=== PATIENT | female | born 1975 | race Hispanic/Latino ===

== ENCOUNTER 2020-04-14 09:45 | Outpatient (CLI) | payer OTHER ==
--- NOTE | 2020-04-14 10:59 | MMO ---
Bilateral MAMMO Bilat Diag [facility]. CLINICAL HISTORY: Patient is 44 years old and is seen for diagnostic exam and palpable abnormality in the right breast. The patient has no family history of breast cancer. The patient has no personal history of cancer. VIEWS: The views performed were: bilateral craniocaudal with tomosynthesis; bilateral mediolateral oblique with tomosynthesis; bilateral mediolateral with tomosynthesis; and bilateral exaggerated craniocaudal. FILMS COMPARED: The present examination has been compared to prior imaging studies performed at [facility] on 04/14/2020, and at [facility] on 03/29/2018 and 03/12/2019. This study has been interpreted with the assistance of computer-aided detection. MAMMOGRAM FINDINGS: The breasts are heterogeneously dense, which could obscure a lesion on mammography. Finding 1: There are stable benign appearing calcifications seen in both breasts. Finding 2: There are two round masses measuring 33 millimeters with circumscribed margins seen in the right breast at 12 o'clock. 2 large cysts There are no suspicious masses, suspicious calcifications, or new areas of architectural distortion. IMPRESSION: THERE IS NO MAMMOGRAPHIC EVIDENCE OF MALIGNANCY. A ROUTINE FOLLOW-UP MAMMOGRAM IN 1 YEAR IS RECOMMENDED. THE RESULTS OF THIS EXAM WERE SENT TO THE PATIENT. ACR BI-RADS Category 2 - Benign finding MAMMOGRAPHY NOTE: 1. A negative mammogram report should not delay a biopsy if a dominant of clinically suspicious mass is present. 2. Approximately 10% to 15% of breast cancers are not detected by mammography. 3. Adenosis and dense breasts may obscure an underlying neoplasm. Reported by: NASH GARCIA MD Electonically Signed: [id number]
--- NOTE | 2020-04-14 12:48 | ULT ---
RIGHT BREAST ULTRASOUND: HISTORY: Ultrasound examination of the right breast was performed with attenuation to a palpable finding at 12 o'clock position right breast. FINDINGS: There are 2 large right breast cysts immediately adjacent to one another. The smaller one measures 2 .4 x 2.4 cm in size. The larger one measures approximately 2.4 x 2.8 cm in size. These 2 cysts acco unt for the palpable finding as well as a mammographic finding. IMPRESSION: Two large benign right breast cysts immediately adjacent to one another at 12 o'clock. BIRADS category 2, benign findings. Continued annual followup screening mammograms.
== END 2020-04-14 09:46 | disposition home or self-care (01) ==
LOC: BICMAMMO 09:45
PROVIDERS: ATTEND Family Medicine
DX: N63.10 Unspecified lump in the right breast, unspecified quadrant (principal); N60.01 Solitary cyst of right breast
CPT/HCPCS: 77066; G0279

== ENCOUNTER 2021-12-06 13:47 | Outpatient (CLI) | payer OTHER | END 2021-12-06 13:48 | disposition home or self-care (01) | LOC: BICMAMMO 13:47 | PROVIDERS: ATTEND Family Medicine | DX: N63.11 Unspecified lump in the right breast, upper outer quadrant (principal); N63.20 Unspecified lump in the left breast, unspecified quadrant; N60.01 Solitary cyst of right breast | CPT/HCPCS: 77066; G0279 ==

== ENCOUNTER 2024-01-02 09:06 | Outpatient (CLI) | payer OTHER | END 2024-01-02 09:07 | disposition home or self-care (01) | LOC: BICMAMMO 09:06 | PROVIDERS: ATTEND Family Medicine | DX: Z12.31 Encounter for screening mammogram for malignant neoplasm of breast (principal) | CPT/HCPCS: 77063; 77067 ==